=== PATIENT | female | born 1975 | race African-American/Black ===

== ENCOUNTER 2023-02-25 06:10 | Day surgery (SDC) | payer OTHER ==
[2023-02-20 13:24] VITALS: BMI 27.3
[2023-02-25] MEDS ORDERED: BUPIVACAINE HCL/PF 0.5% (5MG/ML) 10 ML VIAL ONE (07:18)
[2023-02-25] MEDS ORDERED: PROPOFOL 80 ML ONE (07:19)
[2023-02-25] MEDS ORDERED: LIDOCAINE HCL/PF 2% SDV 5ML VIAL ONE (07:19)
[2023-02-25] MEDS ORDERED: MIDAZOLAM HCL 2 MG/2 ML SINGLE DOSE VIAL ONE (07:19)
[2023-02-25] MEDS ORDERED: DEXAMETHASONE SOD PHOSPHATE 4 MG/1 ML VIAL ONE (07:48)
[2023-02-25] MEDS ORDERED: ceFAZolin SODIUM 1 GM VIAL ONE (07:48)
[2023-02-25] MEDS ORDERED: SUCCINYLCHOLINE CHLORIDE 200 MG/10 ML SYRINGE ONE (07:55)
[2023-02-25] MEDS ORDERED: PROPOFOL 20 ML ONE (08:34)
[2023-02-25] MEDS ORDERED: ONDANSETRON 4 MG/2 ML VIAL IVPUSH PRN (09:41)
[2023-02-25] MEDS ORDERED: LACTATED RINGERS SOLUTION 1,000 ML IV SCH (09:45)
[2023-02-25 10:34] VITALS: RESP 19; TEMP 96.4
[2023-02-25 10:37] VITALS: BP 148/97; PULSE 60
== END 2023-02-25 10:36 | disposition home or self-care (01) ==
LOC: FASU 06:10
PROVIDERS: ATTEND Podiatrist Foot Surgery
PROC: 0SRP0JZ Replacement of Right Toe Phalangeal Joint with Synthetic Substitute, Open Approach (ICD-10-PCS; 2023-02-25)
PROC: 0SRQ0JZ Replacement of Left Toe Phalangeal Joint with Synthetic Substitute, Open Approach (ICD-10-PCS; principal; 2023-02-25 08:09)
DX: M20.42 Other hammer toe(s) (acquired), left foot (principal); M20.41 Other hammer toe(s) (acquired), right foot
CPT/HCPCS: 81025; 88305-TC; 88311-TC; 94760